=== PATIENT | female | born 1965 | race Caucasian/White ===

== ENCOUNTER → 2017-12-23 | Outpatient (CLI) | payer SELFPAY ==
[~2017-12-23] MED LIST: ASCO1TAB5 PO; CHOL400T55 PO; GLUC-139 PO; MULT-1335 PO; OMEG300C PO; TOBR5DRO43 OD; VITA1CAP46 PO
--- NOTE | 2017-12-24 08:31 | RADIOLOGY IMAGING REPORT ---
FACILITY: [facility] [place] PATIENT NAME: FRANK MILLER : [id number] MR: [id number] V: [id number] EXAM DATE: ORDERING PHYSICIAN: BARRY LANG TECHNOLOGIST: Gabriela Mauricio PROCEDURE:BILATERAL DIGITAL SCREENING MAMMOGRAM WITH CAD ASSISTED INTERPRETATION & 3D TOMOSYNTHESIS COMPARISON:Prior mammograms 04/03/15, 11/30/12, 11/09/12, 08/12/11, 08/04/11. INDICATIONS:screening FINDINGS: Moderately dense fibroglandular tissue is seen throughout the breasts. The parenchymal pattern has remained stable allowing for difference in mammographic technique & patient positioning. There is no evidence of malignant appearing mass, malignant appearing calcifications or other secondary sign of malignancy in either breast. DIAGNOSTIC CATEGORY 1--NEGATIVE. RECOMMENDATIONS: ROUTINE MAMMOGRAM AND CLINICAL EVALUATION. IMPRESSION: BIRADS 1: Negative. No significant abnormality is seen. Dictated by: Libia Danielle M.D. on 12/23/2017 at 16:44 Transcribed by: CLAU on 12/24/2017 at 7:56 Approved by: Libia Danielle M.D. on 12/24/2017 at 8:30 [facility]
== END ==
LOC: MAMO 02:48
PROVIDERS: ATTEND Nurse Practitioner Family
DX: Z12.31 Encounter for screening mammogram for malignant neoplasm of breast (principal)
CPT/HCPCS: 77063; 77067